=== PATIENT | male | born 1955 | race Caucasian/White ===

== ENCOUNTER → 2017-06-11 | Outpatient (CLI) | payer BC ==
[~2017-06-11] MED LIST: ASPIR 8181 M1 PO; AZITHROMYCIN250 MG; BENTYL10 MG PO; BENZONATATE200 MG; LISINOPRIL10 MG; PRAVASTATIN SOD40 MG PO; RANITIDINE HCL150 MG PO; SIMETHICONE125 M1 PO; WELCHOL3.75 GM
== END | disposition home or self-care (01) ==
LOC: CDC 08:04
DX: R97.20 Elevated prostate specific antigen [PSA] (principal); R94.31 Abnormal electrocardiogram [ECG] [EKG]
CPT/HCPCS: 93000

== ENCOUNTER 2017-12-14 19:04 | Emergency (ER) | payer BC ==
[~2017-12-14] VITALS: Ht 170.2 cm; Wt 78.6 kg
[2017-12-14 20:17] LABS: APPEARANCE CLEAR ((CLEAR)); BILIRUBIN NEGATIVE; BLOOD NEGATIVE; COLOR YELLOW ((YELLOW)); GLUCOSE (STRIP) NEGATIVE; KETONES NEGATIVE; LEUKOCYTES NEGATIVE; NITRITE NEGATIVE; PROTEIN (STRIP) NEGATIVE; SPECIFIC GRAVITY 1.019 (1.000-1.030); UCUL ADDED? NO; UROBILINOGEN 0.2 MG/DL (0.2-1.0)
[2017-12-14] MEDS ORDERED: MOTRIN600 MG PO (20:55)
[2017-12-14] MEDS ORDERED: ROBAXIN500 MG PO (20:55)
[2017-12-14] MEDS ORDERED: LIDODERM 5% P1 PATCH TD (20:55)
[2017-12-14] MEDS ORDERED: LORTAB 5-325 M1 EACH PO (20:55)
[2017-12-14 21:13] VITALS: BP 155/89
== END 2017-12-14 21:14 | disposition home or self-care (01) ==
LOC: EME 19:04
PROVIDERS: Physician Assistant Medical
DX: M54.5 Low back pain (principal); Z87.442 Personal history of urinary calculi; Z86.79 Personal history of other diseases of the circulatory system; Z88.0 Allergy status to penicillin; Z88.1 Allergy status to other antibiotic agents
CPT/HCPCS: 72100; 81003; 99281; 99284